=== PATIENT | female | born 1990 | race American Indian/Alaskan Native ===

== ENCOUNTER 2017-11-24 10:03 | Outpatient (CLI) | payer OTHER ==
--- NOTE | 2017-11-24 14:01 | XRay Report ---
ROUTINE CHEST, TWO VIEWS: HISTORY: Lupus, rheumatoid arthritis. There is a moderate left pleural effusion with mild compressive atelectasis of the left lung. The right lung is clear. No right pleural effusion. Heart and mediastinal structures are grossly normal. The bony thorax is within normal limits. IMPRESSION: Moderate left pleural effusion.
== END 2017-11-24 10:04 | disposition home or self-care (01) ==
LOC: XRAY 10:03
PROVIDERS: ATTEND Internal Medicine
DX: J98.11 Atelectasis (principal); J90 Pleural effusion, not elsewhere classified; L93.0 Discoid lupus erythematosus; M06.9 Rheumatoid arthritis, unspecified
CPT/HCPCS: 71046

== ENCOUNTER 2020-09-07 13:44 | Emergency (ER) | payer MEDICARE, OTHER ==
[2020-09-07 14:11] VITALS: BP 142/106
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
== END 2020-09-07 14:30 ==
LOC: ED 13:44
DX: R51.9 Headache, unspecified (principal); R42 Dizziness and giddiness; Z53.21 Procedure and treatment not carried out due to patient leaving prior to being seen by health care provider
CPT/HCPCS: 70450; 72125